=== PATIENT | male | born 1955 | race Caucasian/White ===

== ENCOUNTER 2016-11-09 22:15 | Inpatient (IN) | payer OTHER ==
[~2016-11-09] VITALS: Ht 172.7 cm; Wt 80.4 kg
[~2016-11-09 22:15] MED LIST: CHOLESTROL MED; HTN MED
[2016-11-09] MEDS ORDERED: SODIUM CHLOR 0.9% 1000 ML INJ 1,000 ML IV SCH (22:23)
[2016-11-09] MEDS ORDERED: ceFAZolin 2 GM PREMIX 50 ML ONE (22:24)
[2016-11-09] MEDS ORDERED: DIPHTH/TETANUS/ACEL PERTUSSIS (BOOSTER) 0.5 ML VIAL/PFS IM ONE ×2 (22:24→22:30)
[2016-11-09 22:27] VITALS: BP 158/76; PULSE 84; RESP 18; TEMP 98.4; O2SAT 92
[2016-11-09] MEDS ORDERED: HYDROmorphone HCL PF 1 MG/ML VIAL IV PUSH ONE ×2 (22:30→23:45)
[2016-11-09] MEDS ORDERED: ceFAZolin 2 GM PREMIX 50 ML IV ONE (22:30)
[2016-11-09] MEDS ORDERED: ONDANSETRON HCL 4 MG/2 ML VIAL IVP ONE (22:30)
[2016-11-09 22:36] VITALS: RESP 18; O2SAT 92
[2016-11-09 22:57] LABS: AUTOMATED NEUTROPHIL # 10.5 TH/MM3 (1.8-7.7); BASOPHIL # 0.2 TH/MM3 (0-0.2); EOSINOPHIL # 0.5 TH/MM3 (0-0.4); EOSINOPHIL % 3.3 % (0.0-4.0); HEMATOCRIT 46.3 % (39.0-51.0); HEMO FLAGS DIFF FINAL; LYMPH % 18.8 % (9.0-44.0); LYMPHOCYTE # 2.9 TH/MM3 (1.0-4.8); MEAN CELL VOLUME 94.1 FL (80.0-100.0); MEAN CORPUSCULAR HEMOGLOBIN 33.3 PG (27.0-34.0); MEAN CORPUSCULAR HGB CONC 35.4 % (32.0-36.0); MONO % 8.8 % (0.0-8.0); NEUT % 68.1 % (16.0-70.0); PLATELET COUNT 307 TH/MM3 (150-450); RED BLOOD COUNT 4.92 MIL/MM3 (4.50-5.90); RED CELL DISTRIBUTION WIDTH 14.4 % (11.6-17.2); WHITE BLOOD COUNT 15.4 TH/MM3 (4.0-11.0)
[2016-11-09] MEDS: SODIUM CHLORIDE 0.9% FLUSH 10 ML FLUSH IVF PRN (22:58)
[2016-11-09] MEDS: BACITRACIN TOP OINT 15 GM TUBE TOP SCH (23:00)
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
[2016-11-09] MEDS ORDERED: LIDOCAINE 1%/EPINEPHrine 1:100,000 SOLN 20 ML VIAL INFIL ONE (23:15)
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
[2016-11-09] MEDS ORDERED: PROPOFOL 200 MG/20 ML AMP IV ONE (23:45)
[2016-11-09] MEDS ORDERED: IOHEXOL 350 MG/ML 10 ML VIAL (for RAD DIAG) IV ONE (23:59)
[2016-11-10] VITALS (7 sets, daily range): BP systolic 136–191; BP diastolic 80–92; PULSE 61–92; RESP 16–18; TEMP 96.8; O2SAT 94–97
[2016-11-10 00:08] LABS: BICARBONATE 22.2 MEQ/L (21.0-32.0); POTASSIUM 3.3 MEQ/L (3.5-5.1)
[2016-11-10 00:22] LABS: CALCIUM-PROTEIN CORRECTED 7.6 MG/DL (8.5-10.1)
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
[2016-11-10] MEDS: SODIUM CHLORIDE 0.9% FLUSH 10 ML FLUSH IVF PRN (01:38)
--- NOTE | 2016-11-10 02:14 | RADRPT ---
EXAM DATE/TIME: 11/10/2016 01:50 [facility] COMPARISON: WRIST LEFT LIMITED (AP & LAT), November 09, 2016, 22:44. INDICATIONS : Post reduction. RADIATION DOSE: 21.77 CTDIvol (mGy) MEDICAL HISTORY : None SURGICAL HISTORY : None. ENCOUNTER: Initial ACUITY: 1 day PAIN SCALE: 8/10 LOCATION: Left wrist. TECHNIQUE: Volumetric scanning of the wrist was performed. Using automated exposure control and adjustment of t he mA and/or kV according to patient size, radiation dose was kept as low as reasonably achievable to obtain optimal diagnostic quality images. FINDINGS: Significant streak artifact limits osseous detail. A slightly displaced fracture of the ulnar styloid is noted. Volar plate and screw fixation of the distal radial metaphyseal fracture is noted which is an intra-articular extending fracture. Unfortunately the significant streak artifact limits evaluati on. CONCLUSION: Acute appearing ulnar styloid process fracture. Operative fixation of comminuted distal radius fractu re. Sebas Borden MD on November 10, 2016 at 2:11 Board Certified Radiologist. This report was verified electronically.
--- NOTE | 2016-11-10 02:54 | RADRPT ---
EXAM DATE/TIME: 11/10/2016 02:38 [facility] COMPARISON: WRIST LEFT LIMITED (AP & LAT), November 09, 2016, 22:44. INDICATIONS : Post splinting of the left wrist. MEDICAL HISTORY : None. SURGICAL HISTORY : None. ENCOUNTER: Subsequent ACUITY: 1 day PAIN SCORE: 4/10 LOCATION: Left wrist FINDINGS: A splint is now in place. The ulnar styloid process fracture fragment is more closely approximated wi th the ulna. Volar plate and screw fixation of the distal radial metaphysis fracture with intra-artic ular extension is again seen with good alignment at the fracture site, improved from previous with no angulation. CONCLUSION: Post reduction films demonstrate improved alignment of the distal radius and ulnar fractures. Sebas Borden MD on November 10, 2016 at 2:51 Board Certified Radiologist. This report was verified electronically.
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
[2016-11-10] MEDS ORDERED: ONDANSETRON HCL 4 MG/2 ML VIAL IV PRN ×2 (04:15→08:30)
[2016-11-10] MEDS ORDERED: SODIUM CHLORIDE 0.9% FLUSH 10 ML FLUSH IVF PRN (04:15)
[2016-11-10] MEDS ORDERED: ACETAMINOPHEN 325 MG TAB PO PRN (04:15)
[2016-11-10] MEDS ORDERED: HYDROmorphone HCL PF 1 MG/ML VIAL IV PUSH ONE (05:30)
[2016-11-10] MEDS ORDERED: SODIUM CHLORIDE 0.9% FLUSH 10 ML FLUSH IV FLUSH PRN (08:30)
[2016-11-10] MEDS: oxyCODONE/ACETAMINOPHEN 5 MG/325 MG TAB PO PRN ×3 (08:37→20:26)
[2016-11-10] MEDS: BACITRACIN TOP OINT 15 GM TUBE TOP SCH (09:00)
[2016-11-10] MEDS: DOCUSATE SODIUM 50 MG/SENNA 8.6 MG TAB PO SCH ×2 (09:00→20:25)
[2016-11-10] MEDS: SODIUM CHLORIDE 0.9% FLUSH 10 ML FLUSH IV FLUSH SCH ×2 (09:00→20:26)
[2016-11-10] MEDS: FAMOTIDINE 20 MG TAB PO SCH ×2 (09:00→20:25)
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
[2016-11-11] VITALS (7 sets, daily range): BP systolic 116–182; BP diastolic 69–94; PULSE 66–82; RESP 16–18; TEMP 96–98.1; O2SAT 94–97
[2016-11-11] MEDS: ENALAPRILAT 1.25 MG/ML VIAL IV PRN ×2 (00:23→10:57)
[2016-11-11] MEDS: oxyCODONE/ACETAMINOPHEN 5 MG/325 MG TAB PO PRN ×5 (00:23→22:55)
[2016-11-11] MEDS ORDERED: METOPROLOL TARTRATE 25 MG TAB PO PRN (02:45)
[2016-11-11] MEDS ORDERED: SODIUM CHLORID 0.9% 500 ML IV SCH (02:45)
[2016-11-11] MEDS ORDERED: INSULIN HUMAN REGULAR 1,000 UNITS/10 ML VIAL SQ PRN (02:45)
[2016-11-11] MEDS ORDERED: LACTATED RINGER'S 1000 ML IV SCH (02:45)
[2016-11-11 05:35] LABS: AUTOMATED NEUTROPHIL # 8.5 TH/MM3 (1.8-7.7); BASOPHIL # 0.1 TH/MM3 (0-0.2); BASOPHIL % 0.6 % (0.0-2.0); EOSINOPHIL # 0.3 TH/MM3 (0-0.4); EOSINOPHIL % 2.7 % (0.0-4.0); HEMATOCRIT 39.7 % (39.0-51.0); HEMO FLAGS DIFF FINAL; LYMPH % 14.5 % (9.0-44.0); LYMPHOCYTE # 1.7 TH/MM3 (1.0-4.8); MEAN CELL VOLUME 94.3 FL (80.0-100.0); MEAN CORPUSCULAR HEMOGLOBIN 32.2 PG (27.0-34.0); MEAN CORPUSCULAR HGB CONC 34.1 % (32.0-36.0); MONO % 10.8 % (0.0-8.0); NEUT % 71.4 % (16.0-70.0); PLATELET COUNT 212 TH/MM3 (150-450); RED BLOOD COUNT 4.22 MIL/MM3 (4.50-5.90); RED CELL DISTRIBUTION WIDTH 14.7 % (11.6-17.2); WHITE BLOOD COUNT 11.9 TH/MM3 (4.0-11.0)
[2016-11-11 06:13] LABS: ALKALINE PHOSPHATASE 64 U/L (45-117); ALT (GPT) 20 U/L (12-78); ANION GAP 7 MEQ/L (5-15); AST (GOT) 26 U/L (15-37); BICARBONATE 25.1 MEQ/L (21.0-32.0); BLOOD UREA NITROGEN 20 MG/DL (7-18); CHLORIDE 107 MEQ/L (98-107); GLOMERULAR FILTRATION RATE 64 ML/MIN (>89); POTASSIUM 3.7 MEQ/L (3.5-5.1); SODIUM (NA) 139 MEQ/L (136-145); TOTAL BILIRUBIN ADULT 0.6 MG/DL (0.2-1.0)
[2016-11-11] MEDS ORDERED: GENTAMICIN SULFATE 80 MG/2 ML VIAL ONE (07:13)
[2016-11-11] MEDS ORDERED: ACETAMINOPHEN 1000 MG/100 ML VIAL IV ONE (07:22)
[2016-11-11] MEDS ORDERED: MIDAZOLAM HCL 2 MG/2 ML VIAL ONE (07:22)
[2016-11-11] MEDS ORDERED: fentaNYL CITRATE 250 MCG/5 ML AMP ONE (07:23)
[2016-11-11] MEDS ORDERED: HYDROmorphone HCL PF 2 MG/ML VIAL ONE (07:23)
[2016-11-11] MEDS ORDERED: ceFAZolin 2 GM PREMIX 50 ML ONE (07:32)
[2016-11-11] MEDS ORDERED: VANCOMYCIN HCL 1000 MG VIAL ONE (07:32)
[2016-11-11] MEDS ORDERED: BUPIVACAINE/EPINEPHRINE 0.25% 50 ML VIAL ONE (07:46)
[2016-11-11] MEDS: FAMOTIDINE 20 MG TAB PO SCH ×2 (09:00→21:04)
[2016-11-11] MEDS ORDERED: PNEUMOCOCCAL POLYVALENT INJ 25 MCG/0.5 ML SYR IM ONE (09:00)
[2016-11-11] MEDS: BACITRACIN TOP OINT 15 GM TUBE TOP SCH ×2 (09:00→21:06)
[2016-11-11] MEDS: SODIUM CHLORIDE 0.9% FLUSH 10 ML FLUSH IV FLUSH SCH ×2 (09:00→21:00)
[2016-11-11] MEDS: DOCUSATE SODIUM 50 MG/SENNA 8.6 MG TAB PO SCH ×2 (09:00→21:08)
[2016-11-11] MEDS ORDERED: PERC5TAB12 PO (09:42)
[2016-11-11] MEDS ORDERED: MORPHINE SULFATE 4 MG/ML INJ IV PUSH PRN (09:45)
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
[2016-11-11] MEDS ORDERED: *RESP: ALBUTEROL 2.5 MG/3 ML NEB (PRN) PERIprocedural Use ONLY NEB ONE (10:22)
[2016-11-11] MEDS ORDERED: *morphine SULFATE 8 MG/ML PERIprocedure ONLY ONE ×2 (10:31→10:55)
[2016-11-11] MEDS: KETOROLAC TROMETHAMINE 30 MG/ML (IVP) VIAL IV PUSH PRN ×2 (10:58→17:57)
[2016-11-11] MEDS ORDERED: DO NOT ADM ANY ANTICOAGULANT DRUGS XX PRN (11:30)
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
--- NOTE | 2016-11-11 11:56 | RADRPT ---
EXAM DATE/TIME: 11/11/2016 09:32 [facility] COMPARISON: WRIST LEFT LIMITED (AP & LAT), November 10, 2016, 2:38. INDICATIONS : Surgical repair and external fixation. MEDICAL HISTORY : None. SURGICAL HISTORY : None. ENCOUNTER: Initial ACUITY: 1 day PAIN SCORE: Non-responsive. LOCATION: Left wrist. FINDINGS: Two view examination of the left wrist demonstrates surgical revision of the previous open reduction and internal fixation of the extensively comminuted distal radial fracture. Fracture fragments appear to be in adequate anatomic alignment. Stable avulsion injury of the ulnar styloid. CONCLUSION: 1. Interval revision of the distal radial metadiaphyseal open reduction and internal fixation. Fractu re fragments are in adequate anatomic alignment. 2. Stable ulnar styloid avulsion fracture. Tyler Camp MD on November 11, 2016 at 11:52 Board Certified Radiologist. This report was verified electronically.
[2016-11-11] MEDS ORDERED: PROPOFOL 200 MG/20 ML AMP IV ONE (12:00)
[2016-11-11] MEDS ORDERED: ONDANSETRON HCL 4 MG/2 ML VIAL IV PUSH ONE (12:00)
[2016-11-11] MEDS ORDERED: NEOSTIGMINE 3 MG/3 ML SYR IV ONE (12:00)
--- NOTE | 2016-11-11 15:54 | HHI.PR ---
Subjective Subjective Notes S/P ex-fix placement LEFT wrist Unsure of which home meds he takes for hypertension and hyperlipidemia Objective Vitals/I&O Vital Signs Date Time Temp Pulse Resp B/P Pulse Ox O2 Delivery O2 Flow Rate FiO2 11/11/16 12:36 94 Nasal Cannula 4.00 11/11/16 12:00 96.0 71 18 116/69 11/11/16 11:02 21 Labs Laboratory Tests Test 11/11/16 05:01 White Blood Count 11.9 Red Blood Count 4.22 Hemoglobin 13.6 Hematocrit 39.7 Mean Corpuscular Volume 94.3 Mean Corpuscular Hemoglobin 32.2 Mean Corpuscular Hemoglobin 34.1 Concent Red Cell Distribution Width 14.7 Platelet Count 212 Mean Platelet Volume 7.3 Neutrophils (%) (Auto) 71.4 Lymphocytes (%) (Auto) 14.5 Monocytes (%) (Auto) 10.8 Eosinophils (%) (Auto) 2.7 Basophils (%) (Auto) 0.6 Neutrophils # (Auto) 8.5 Lymphocytes # (Auto) 1.7 Monocytes # (Auto) 1.3 Eosinophils # (Auto) 0.3 Basophils # (Auto) 0.1 CBC Comment DIFF FINAL Differential Comment Sodium Level 139 Potassium Level 3.7 Chloride Level 107 Carbon Dioxide Level 25.1 Anion Gap 7 Blood Urea Nitrogen 20 Creatinine 1.16 Estimat Glomerular Filtration 64 Rate Random Glucose 93 Calcium Level 8.4 Total Bilirubin 0.6 Aspartate Amino Transf 26 (AST/SGOT) Alanine Aminotransferase 20 (ALT/SGPT) Alkaline Phosphatase 64 Total Protein 6.6 Albumin 2.8 Date/Time Procedure Status Source Growth 11/10/16 19:14 MRSA Surveillance Culture - Preliminary Resulted Other RESULTS PENDING Radiology Last Impressions Wrist X-Ray 11/11/16 0000 Signed Impressions: Service Date/Time: Friday, November 11, 2016 09:32 - CONCLUSION: 1. Interval revision of the distal radial metadiaphyseal open reduction and internal fixation. Fracture fragments are in adequate anatomic alignment. 2. Stable ulnar styloid avulsion fracture. Tyler Camp MD Chest CT 11/10/162222 Signed Impressions: Service Date/Time: October 00:43 - CONCLUSION: 1. Cholelithiasis. 2. Atherosclerosis. Sebas Borden MD Abdomen/Pelvis CT 11/10/162222 Signed Impressions: Service Date/Time: October 00:43 - CONCLUSION: 1. Sigmoid bowel wall thickening and diverticulosis with mild mesenteric stranding characteristic of diverticulitis. 2. Atherosclerosis. 3. Cholelithiasis. Sebas Borden MD Upper Extremity CT 11/10/16 Signed Impressions: Service Date/Time: October 01:50 - CONCLUSION: Acute appearing ulnar styloid process fracture. Operative fixation of comminuted distal radius fracture. Sebas Borden MD Tibia/Fibula X-Ray 11/09/162222 Signed Impressions: Service Date/Time: Wednesday, November 09, 2016 22:49 - CONCLUSION: Unremarkable examination of the right tibia. Sebas Borden MD Pelvis X-Ray 11/09/162222 Signed Impressions: Service Date/Time: Wednesday, November 09, 2016 22:39 - CONCLUSION: No acute disease. Sebas Borden MD Maxillofacial CT 11/09/162222 Signed Impressions: Service Date/Time: October 00:37 - CONCLUSION: 1. Nasal bone and septal fractures. Sebas Borden MD Knee X-Ray 11/09/162222 Signed Impressions: Service Date/Time: Wednesday, November 09, 2016 22:47 - CONCLUSION: No acute disease. Sebas Borden MD Head CT 11/09/162222 Signed Impressions: Service Date/Time: October 00:37 - CONCLUSION: Normal examination. Sebas Borden MD Chest X-Ray 11/09/162222 Signed Impressions: Service Date/Time: Wednesday, November 09, 2016 22:37 - CONCLUSION: No acute disease. Sebas Borden MD Cervical Spine CT 11/09/162222 Signed Impressions: Service Date/Time: October 00:37 - CONCLUSION: 1. Stable degenerative changes with no evidence for acute fracture or listhesis. Sebas Borden MD Radius/Ulna X-Ray 11/09/16 0000 Signed Impressions: Service Date/Time: Wednesday, November 09, 2016 22:42 - CONCLUSION: Distal radius and ulnar fractures. Sebas Borden MD Narrative Exam GENERAL: 60-year-old well-nourished, well developed male sitting up in bed. SKIN: Warm and dry. HEAD: Normocephalic. ENT: No nasal bleeding or discharge. Mucous membranes pink and moist. NECK: Trachea midline. No JVD. CARDIOVASCULAR: Regular rate and rhythm. RESPIRATORY: No accessory muscle use. Lungs clear to auscultation. Breath sounds equal bilaterally. GASTROINTESTINAL: Abdomen soft, non-tender, nondistended. + BS. MUSCULOSKELETAL: Extremities without cyanosis, or edema LEFT forearm with ex- fix and sling in place. + pulses, GOMES NEUROLOGICAL: Awake and alert. Normal speech. A/P Assessment and Plan INJURIES: LEFT radius/ulnar fx Nasal and septal fxs (non-op) PMHx: HLD, CAD, HTN 11/11: Removal hardware left wrist, revision ORIF left wrist with ex-fix placement Diet: Heart healthy, tolerating Pulmonary: IS, encouraged home use Pain: Percocet 1-2, pain controlled Activity: OOB. PT/OT evaluating. (KYLEIGH JAMISON) GI: Pepcid Bowel: Arleen-colace. No BM yet. DVT: SCDs RN to call [facility] to update med rec. Plan of care discussed with patient at bedside. The exam, history, and the medical decision-making described in the above note were completed with the assistance of the mid-level provider. I reviewed and agree with the findings presented. I attest that I had a [id number] encounter with the patient on the same day, and personally performed and documented my assessment and findings in the medical record. Fe Thibodeaux Nov 11, 2016 15:54 Alexander Flores MD Nov 26, 2016 23:36
[2016-11-12] VITALS: BP 142/76; PULSE 67; RESP 16; TEMP 97.5; O2SAT 97
[2016-11-12 04:57] LABS: AUTOMATED NEUTROPHIL # 14.2 TH/MM3 (1.8-7.7); BASOPHIL # 0.1 TH/MM3 (0-0.2); BASOPHIL % 0.3 % (0.0-2.0); HEMATOCRIT 35.7 % (39.0-51.0); HEMO FLAGS DIFF FINAL; LYMPH % 7.1 % (9.0-44.0); LYMPHOCYTE # 1.2 TH/MM3 (1.0-4.8); MEAN CELL VOLUME 94.5 FL (80.0-100.0); MEAN CORPUSCULAR HEMOGLOBIN 32.5 PG (27.0-34.0); MEAN CORPUSCULAR HGB CONC 34.4 % (32.0-36.0); MONO % 9.7 % (0.0-8.0); NEUT % 82.9 % (16.0-70.0); PLATELET COUNT 221 TH/MM3 (150-450); RED BLOOD COUNT 3.78 MIL/MM3 (4.50-5.90); WHITE BLOOD COUNT 17.2 TH/MM3 (4.0-11.0)
[2016-11-12 05:35] LABS: ALT (GPT) 19 U/L (12-78); ANION GAP 7 MEQ/L (5-15); AST (GOT) 30 U/L (15-37); BLOOD UREA NITROGEN 22 MG/DL (7-18); CHLORIDE 103 MEQ/L (98-107); GLOMERULAR FILTRATION RATE 53 ML/MIN (>89); SODIUM (NA) 135 MEQ/L (136-145)
[2016-11-12 05:37] LABS: ALKALINE PHOSPHATASE 62 U/L (45-117); TOTAL BILIRUBIN ADULT 0.5 MG/DL (0.2-1.0)
[2016-11-12] MEDS: oxyCODONE/ACETAMINOPHEN 5 MG/325 MG TAB PO PRN ×2 (06:02→11:10)
--- NOTE | 2016-11-12 06:41 | RADRPT ---
EXAM DATE/TIME: 11/12/2016 05:50 [place] COMPARISON: CT THORAX W CONTRAST, November 10, 2016, 0:43. CHEST SINGLE AP, November 09, 2016, 22:37. INDICATIONS : Follow up pneumothorax. MEDICAL HISTORY : None. SURGICAL HISTORY : None. ENCOUNTER: Subsequent ACUITY: 3 days PAIN SCORE: 5/10 LOCATION: Bilateral chest FINDINGS: A single view of the chest demonstrates the lungs to be symmetrically aerated without evidence of mas s, infiltrate or effusion. The cardiomediastinal contours are unremarkable. Osseous structures are intact. No pneumothorax. CONCLUSION: 1. No pneumothorax. 2. Clear lungs. Aleksandar Robert Jr., MD on November 12, 2016 at 6:39 Board Certified Radiologist. This report was verified electronically.
--- NOTE | 2016-11-12 07:07 | PD.ORT.PN ---
Subjective Subjective Remarks Pain controlled with no new complaints. Objective Vitals Vital Signs Date Time Temp Pulse Resp B/P Pulse Ox O2 Delivery O2 Flow Rate FiO2 11/12/16 00:00 97.5 67 16 142/76 97 11/11/16 20:00 97.4 82 17 138/90 97 11/11/16 16:00 96.1 66 18 138/73 95 11/11/16 12:36 94 Nasal Cannula 4.00 11/11/16 12:00 96.0 71 18 116/69 96 11/11/16 11:30 97.5 67 16 147/81 97 Nasal Cannula 4 11/11/16 11:15 80 15 162/88 97 Nasal Cannula 4 11/11/16 11:02 94 21 11/11/16 11:00 71 15 165/89 97 Simple Mask 6 11/11/16 10:45 68 15 156/97 97 Simple Mask 6 11/11/16 10:30 67 15 180/95 97 Aerosol Mask 8 11/11/16 10:16 97.6 74 15 147/80 91 Nasal Cannula 4 I/O 11/11/16 11/11/16 11/11/16 11/12/16 11/12/16 11/12/16 07:00 15:00 23:00 07:00 15:00 23:00 Intake Total 0 ml 1570 ml 480 ml 480 ml Output Total 10 ml Balance 0 ml 1560 ml 480 ml 480 ml Intake Oral 0 ml 720 ml 480 ml 480 ml IV Total 150 ml Other 700 ml Output Estimated Blood Loss 10 ml # Voids 2 5 2 2 Result Diagram: 11/12/16 0419 11/12/16 0419 Imaging Last [address] 11/10/162222 Signed Impressions: Service Date/Time: October 00:43 - CONCLUSION: 1. Cholelithiasis. 2. Atherosclerosis. Sebas Borden MD Abdomen/Pelvis CT 11/10/162222 Signed Impressions: Service Date/Time: October 00:43 - CONCLUSION: 1. Sigmoid bowel wall thickening and diverticulosis with mild mesenteric stranding characteristic of diverticulitis. 2. Atherosclerosis. 3. Cholelithiasis. Sebas Borden MD Wrist X-Ray 11/10/16 0000 Signed Impressions: Service Date/Time: October 02:38 - CONCLUSION: Post reduction films demonstrate improved alignment of the distal radius and ulnar fractures. Sebas Borden MD Upper Extremity CT 11/10/16 0000 Signed Impressions: Service Date/Time: October 01:50 - CONCLUSION: Acute appearing ulnar styloid process fracture. Operative fixation of comminuted distal radius fracture. Sebas Borden MD Wrist X-Ray 11/09/162222 Signed Impressions: Service Date/Time: Wednesday, November 09, 2016 22:44 - CONCLUSION: Distal radius and ulnar fractures are noted as above. Sebas Borden MD Tibia/Fibula X-Ray 11/09/162222 Signed Impressions: Service Date/Time: Wednesday, November 09, 2016 22:49 - CONCLUSION: Unremarkable examination of the right tibia. Sebas Borden MD Pelvis X-Ray 11/09/162222 Signed Impressions: Service Date/Time: Wednesday, November 09, 2016 22:39 - CONCLUSION: No acute disease. Sebas Borden MD Maxillofacial CT 11/09/162222 Signed Impressions: Service Date/Time: October 00:37 - CONCLUSION: 1. Nasal bone and septal fractures. Sebas Borden MD Knee X-Ray 11/09/162222 Signed Impressions: Service Date/Time: Wednesday, November 09, 2016 22:47 - CONCLUSION: No acute disease. Sebas Borden MD Head CT 11/09/162222 Signed Impressions: Service Date/Time: October 00:37 - CONCLUSION: Normal examination. Sebas Borden MD Chest X-Ray 11/09/162222 Signed Impressions: Service Date/Time: Wednesday, November 09, 2016 22:37 - CONCLUSION: No acute disease. Sebas Borden MD Cervical Spine CT 11/09/162222 Signed Impressions: Service Date/Time: October 00:37 - CONCLUSION: 1. Stable degenerative changes with no evidence for acute fracture or listhesis. Sebas Borden MD Objective Remarks LUE: +sugar tong splint. intact. +sensation to median and ulnar nerve distribution. good motion of fingers. Assessment & Plan Assessment and Plan 1) Left Distal radius fx Nonweightbearing left upper extremity Maintain dressing keep dry and clean Wear sling when out of bed Discharge to home Follow-up with Dr. Askew or [place] in 2 weeks Jv Kincaid Jr. Nov 12, 2016 07:07
[2016-11-12 08:00] VITALS: BP 135/79; PULSE 69; RESP 18; TEMP 95.7; O2SAT 97
[2016-11-12] MEDS ORDERED: SENN1TAB PO (08:00)
[2016-11-12] MEDS: SODIUM CHLORIDE 0.9% FLUSH 10 ML FLUSH IV FLUSH SCH (09:00)
[2016-11-12] MEDS: BACITRACIN TOP OINT 15 GM TUBE TOP SCH (09:00)
[2016-11-12] MEDS: FAMOTIDINE 20 MG TAB PO SCH (09:05)
[2016-11-12] MEDS: DOCUSATE SODIUM 50 MG/SENNA 8.6 MG TAB PO SCH (09:05)
--- NOTE | 2016-11-12 11:02 | EKG ---
Date Performed: 11/11/2016 Time Performed: 05:49:32 PTAGE: 60 years EKG: Sinus bradycardia rSr'(V1) - probable normal variant Borderline ECG NO PREVIOUS TRACING DOCTOR: Claudia Michel Interpretating Date/Time 11/12/2016 10:58:35
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
[2016-11-13] MEDS ORDERED: PNEUMOCOCCAL POLYVALENT INJ 25 MCG/0.5 ML SYR IM ONE (10:00)
== END 2016-11-12 13:04 | disposition home or self-care (01) | DRG 512 ==
LOC: NEPE 22:15 → NEDA 11-10 03:46 → OBSVTOIN 11-10 08:32 → NEDA 11-10 11:37 → N06B 11-10 17:25
PROVIDERS: ADMIT Surgery; ATTEND Surgery
PROC: 0PSJXZZ Reposition Left Radius, External Approach (ICD-10-PCS; 2016-11-09)
PROC: 0HQKXZZ Repair Right Lower Leg Skin, External Approach (ICD-10-PCS; 2016-11-10)
PROC: 0PHJ35Z Insertion of External Fixation Device into Left Radius, Percutaneous Approach (ICD-10-PCS; 2016-11-11)
PROC: 0PSJ04Z Reposition Left Radius with Internal Fixation Device, Open Approach (ICD-10-PCS; principal; 2016-11-11 08:00)
DX: S52.572A Other intraarticular fracture of lower end of left radius, initial encounter for closed fracture (principal); I10 Essential (primary) hypertension; S02.2XXA Fracture of nasal bones, initial encounter for closed fracture; S81.821A Laceration with foreign body, right lower leg, initial encounter; V23.4XXA Motorcycle driver injured in collision with car, pick-up truck or van in traffic accident, initial encounter; Y92.410 Unspecified street and highway as the place of occurrence of the external cause; E78.5 Hyperlipidemia, unspecified; I25.10 Atherosclerotic heart disease of native coronary artery without angina pectoris; F17.210 Nicotine dependence, cigarettes, uncomplicated
CPT/HCPCS: 12032; 25605; 70450; 70486; 71010; 71260; 72125; 72170; 73090; 73100; 73200; 73564; 73590; 74177; 76000; 80048; 80053; 84155; 85025; 87081; 90471; 90715; 93005; 94150; 96361; 96365; 96375; 96376; 99152; C1713; J0131; J0690; J1170; J1580; J1885; J2250; J2270; J2405; J2710; J3010; J3370; J7030; J7613; L0150; Q9967